=== PATIENT | female | born 1935 | race Caucasian/White ===

== ENCOUNTER 2018-10-07 13:40 | Inpatient (IN) | payer MEDICARE ==
[~2018-10-07] VITALS: Ht 149.9 cm; Wt 88.9 kg
[2018-10-07] MEDS ORDERED: SODIUM CHLORIDE 0.9% 1,000 ML IV ONE (14:14)
[2018-10-07] MEDS ORDERED: VANCOMYCIN 1 G PREMIX 200 ML IV ONE (14:15)
[2018-10-07] MEDS ORDERED: PIPERACILLIN/TAZ 3.375G PREMIX 50 ML IV ONE (14:15)
[2018-10-07 14:50] LABS: EOSINOPHILS % 2.7 % (0.0-5.0); HEMATOCRIT. 27.4 % (36.0-48.0); LYMPHOCYTES % 22.9 % (20.0-50.0); MEAN CORPUSCULAR HEMOGLOBIN 32.6 pg (28.0-32.0); MEAN CORPUSCULAR VOLUME 98.8 fL (81.0-99.0); MEAN PLATELET VOLUME 8.9 fl (7.4-10.4); MONOCYTES % 13.5 % (2.0-8.0); NEUTROPHILS % 59.9 % (40.0-76.0); PLATELET 231 x1000/uL (130-400); RED BLOOD CELL COUNT 2.77 mill/uL (4.2-5.4); RED CELL DISTRIBUTION WIDTH 17.1 % (11.6-14.6)
[2018-10-07 14:52] LABS: CLARITY URINE CLEAR (CLEAR); COLOR URINE YELLOW (YELLOW); KETONES URINE NEGATIVE (NEGATIVE); LEUKOCYTE ESTERASE URINE 3+ (NEGATIVE); NITRITE URINE NEGATIVE (NEGATIVE); OCCULT BLOOD URINE NEGATIVE (NEGATIVE); PH URINE 7.5 (4.5-8.0); PROTEIN URINE NEGATIVE (NEGATIVE); SPECIFIC GRAVITY URINE 1.006 (1.005-1.030); UROBILINOGEN URINE 0.2 E.U./dL (0.2-1.0)
[2018-10-07 14:57] LABS: CHLORIDE 111 mEq/L (98-107)
[2018-10-07 15:05] LABS: CREATINE KINASE 94 IU/L (26-192)
[2018-10-07 15:08] LABS: CREATINE KINASE MB FRACTION 2.6 ng/mL (0.5-3.6)
[2018-10-07 17:09] LABS: INR 1.2; PROTHROMBIN TIME 12.2 sec (9.6-11.0)
[2018-10-07 22:58] VITALS: BP 127/53
[2018-10-07 23:04] VITALS: BP 127/53
[2018-10-07] MEDS ORDERED: CEFTRIAXONE 1 G PREMIX 50 ML IV SCH (23:30)
[2018-10-07] MEDS ORDERED: ACETAMINOPHEN 325MG TABLET PO PRN (23:30)
[2018-10-07] MEDS ORDERED: IPRATROPIUM/ALBUTEROL 0.5-3(2.5)MG/3ML NEB INH PRN (23:30)
[2018-10-07] MEDS ORDERED: ONDANSETRON HCL 4MG/2ML INJ IV PRN (23:30)
[2018-10-07] MEDS ORDERED: CLONIDINE 0.1MG TABLET PO PRN (23:30)
[2018-10-08 00:08] VITALS: BP 131/55
[2018-10-08] MEDS ORDERED: DEXTROSE 50% WATER 50ML SYRINGE IV PRN (00:15)
[2018-10-08] MEDS: SODIUM CHLORIDE 0.45% 1,000 ML IV SCH ×2 (00:51→21:52)
[2018-10-08] MEDS: CEFTRIAXONE 1 G PREMIX 50 ML IV SCH (00:51)
[2018-10-08] MEDS: HYDROCODONE/ACETAMINOPHEN 5/325MG TABLET PO PRN ×2 (03:46→10:17)
[2018-10-08 04:00] VITALS: BP 152/61
[2018-10-08 06:37] LABS: HEMATOCRIT. 24.1 % (36.0-48.0); MEAN CORPUSCULAR HEMOGLOBIN 32.4 pg (28.0-32.0); MEAN CORPUSCULAR VOLUME 97.9 fL (81.0-99.0); MEAN PLATELET VOLUME 8.4 fl (7.4-10.4); PLATELET 174 x1000/uL (130-400); RED BLOOD CELL COUNT 2.46 mill/uL (4.2-5.4); RED CELL DISTRIBUTION WIDTH 17.1 % (11.6-14.6)
[2018-10-08 06:41] LABS: CHLORIDE 113 mEq/L (98-107)
[2018-10-08 06:52] LABS: LDL CHOLESTEROL 65 mg/dL (5-100)
[2018-10-08 06:53] LABS: CREATINE KINASE 63 IU/L (26-192); T4 FREE 1.73 ng/dL (0.76-1.46)
[2018-10-08 06:55] LABS: HDL CHOLESTEROL 25 mg/dL (40-59)
[2018-10-08] MEDS: BLOOD SUGAR DIAGNOSTIC STRIP TEST SCH ×4 (07:34→21:00)
[2018-10-08] MEDS: INSULIN LISPRO 100 UNITS/ML SUBCUT SCH ×4 (07:34→21:00)
[2018-10-08 08:00] VITALS: BP 147/78
[2018-10-08] MEDS ORDERED: ENOXAPARIN 30MG/0.3ML SYR SUBCUT SCH (09:00)
[2018-10-08 12:00] VITALS: BP 130/73
[2018-10-08 12:14] LABS: PLATELET ESTIMATE NORMAL
[2018-10-08] MEDS ORDERED: FURO-152 PO (12:50)
[2018-10-08] MEDS ORDERED: ASPI-1159 PO (12:50)
[2018-10-08] MEDS ORDERED: SENN8.6T71 PO (12:50)
[2018-10-08] MEDS ORDERED: AMLO5TAB88 PO (12:50)
[2018-10-08] MEDS ORDERED: OMEP20TA2 PO (12:50)
[2018-10-08] MEDS ORDERED: LISI40TA4 PO (12:50)
[2018-10-08] MEDS ORDERED: APIX2.5T PO (12:50)
[2018-10-08] MEDS: MORPHINE SULFATE 4 MG/ML CPJ (NOT FOR IM USE) IV PRN (13:40)
[2018-10-08 16:00] VITALS: BP 133/69
[2018-10-08 20:00] VITALS: BP 110/50
[2018-10-09 00:05] VITALS: BP 108/81
[2018-10-09] MEDS: CEFTRIAXONE 1 G PREMIX 50 ML IV SCH (00:28)
[2018-10-09] MEDS: MORPHINE SULFATE 4 MG/ML CPJ (NOT FOR IM USE) IV PRN ×3 (00:28→14:38)
[2018-10-09 04:00] VITALS: BP 141/89
[2018-10-09 06:02] LABS: BASOPHILS % 0.8 % (0.0-2.0); EOSINOPHILS % 5.3 % (0.0-5.0); HEMATOCRIT. 25.2 % (36.0-48.0); HEMOGLOBIN. 8.6 g/dL (12.0-16.0); LYMPHOCYTES % 44.6 % (20.0-50.0); MEAN CORPUSCULAR VOLUME 99.8 fL (81.0-99.0); MEAN PLATELET VOLUME 8.7 fl (7.4-10.4); MONOCYTES % 14.8 % (2.0-8.0); NEUTROPHILS % 34.5 % (40.0-76.0); PLATELET 168 x1000/uL (130-400); RED BLOOD CELL COUNT 2.53 mill/uL (4.2-5.4); RED CELL DISTRIBUTION WIDTH 16.9 % (11.6-14.6)
[2018-10-09] MEDS: INSULIN LISPRO 100 UNITS/ML SUBCUT SCH ×4 (07:19→21:00)
[2018-10-09] MEDS: BLOOD SUGAR DIAGNOSTIC STRIP TEST SCH ×4 (07:19→21:00)
[2018-10-09 08:28] VITALS: BP 116/53
[2018-10-09] MEDS: ENOXAPARIN 40MG/0.4ML SYR SUBCUT SCH (10:10)
[2018-10-09 11:59] VITALS: BP 128/68
[2018-10-09 16:14] VITALS: BP 124/64
[2018-10-09 20:07] VITALS: BP 127/58
[2018-10-09] MEDS: GABAPENTIN 300MG CAPSULE PO SCH (20:55)
[2018-10-09] MEDS: SODIUM CHLORIDE 0.45% 1,000 ML IV SCH (20:56)
[2018-10-10] VITALS (7 sets, daily range): BP systolic 104–120; BP diastolic 43–56
[2018-10-10] MEDS: CEFTRIAXONE 1 G PREMIX 50 ML IV SCH (00:40)
[2018-10-10] MEDS: SODIUM CHLORIDE 0.45% 1,000 ML IV SCH ×2 (02:30→19:29)
[2018-10-10] MEDS: GABAPENTIN 300MG CAPSULE PO SCH ×2 (05:43→15:23)
[2018-10-10 06:52] LABS: HEMATOCRIT. 23.7 % (36.0-48.0); HEMOGLOBIN. 7.8 g/dL (12.0-16.0); MEAN CORPUSCULAR HEMOGLOBIN 32.5 pg (28.0-32.0); MEAN CORPUSCULAR VOLUME 98.9 fL (81.0-99.0); MEAN PLATELET VOLUME 8.5 fl (7.4-10.4); PLATELET 162 x1000/uL (130-400); RED CELL DISTRIBUTION WIDTH 16.5 % (11.6-14.6)
[2018-10-10] MEDS: BLOOD SUGAR DIAGNOSTIC STRIP TEST SCH ×3 (07:40→17:40)
[2018-10-10] MEDS: INSULIN LISPRO 100 UNITS/ML SUBCUT SCH ×3 (08:10→18:10)
[2018-10-10] MEDS: ENOXAPARIN 40MG/0.4ML SYR SUBCUT SCH (09:09)
[2018-10-10 09:55] LABS: PLATELET ESTIMATE NORMAL
== END 2018-10-10 22:20 | disposition home health service (06) | DRG 683 ==
LOC: ER 13:45 → EDBD 13:45 → 7WST 16:12 → EDBEDREQ 16:12 → EDBEDREQTM 16:12 → ENRESERV 21:36
PROVIDERS: ADMIT Internal Medicine; ATTEND Internal Medicine
DX: N17.9 Acute kidney failure, unspecified (principal); N39.0 Urinary tract infection, site not specified; E11.22 Type 2 diabetes mellitus with diabetic chronic kidney disease; E66.9 Obesity, unspecified; N18.9 Chronic kidney disease, unspecified; Z96.642 Presence of left artificial hip joint; I12.9 Hypertensive chronic kidney disease with stage 1 through stage 4 chronic kidney disease, or unspecified chronic kidney disease; D64.89 Other specified anemias; Z90.710 Acquired absence of both cervix and uterus; Z90.49 Acquired absence of other specified parts of digestive tract
CPT/HCPCS: 36415; 71045; 72170; 72192; 73552; 73700; 74176; 80048; 80061; 82550; 82553; 82962; 83605; 83880; 84145; 84439; 84443; 84484; 87077; 87186; 93005; 96365; 96366; 96372; 97162; 99291; C1893; J0696; J1650; J2270; J2543; J3370; J7030